=== PATIENT | female | born 1945 | race Caucasian/White ===

== ENCOUNTER → 2017-09-29 | Outpatient (CLI) | payer MEDICARE, BC | LOC: MC.RAD 13:15 | DX: Z12.31 Encounter for screening mammogram for malignant neoplasm of breast (principal) ==

== ENCOUNTER 2020-03-04 19:11 | Emergency (ER) | payer MEDICARE, BC ==
[~2020-03-04] VITALS: Ht 162.6 cm; Wt 75.0 kg
[2020-03-04 19:18] VITALS: TEMP 98
[2020-03-04 21:26] VITALS: BP 172/87; PULSE 65
== END 2020-03-04 21:28 | disposition home or self-care (01) ==
LOC: COL.ER 19:11
DX: S00.03XA Contusion of scalp, initial encounter (principal); S50.01XA Contusion of right elbow, initial encounter; W01.10XA Fall on same level from slipping, tripping and stumbling with subsequent striking against unspecified object, initial encounter

== ENCOUNTER → 2021-08-10 | Outpatient (CLI) | payer MEDICARE, BC | LOC: MC.RAD 09:46 | DX: Z12.31 Encounter for screening mammogram for malignant neoplasm of breast (principal) ==